=== PATIENT | female | born 1975 | race Caucasian/White ===

== ENCOUNTER 2017-02-07 10:48 | Inpatient (IN) | payer BC, OTHER ==
[~2017-02-07] VITALS: Ht 165.1 cm; Wt 94.1 kg
[2017-02-07] MEDS ORDERED: SODIUM CHLORIDE 0.9% 1000ML 1,000 ML IV SCH (10:54)
--- NOTE | 2017-02-07 11:27 | DIAGNOSTIC IMAGING REPORT ---
CT OF THE HEAD WITHOUT CONTRAST CLINICAL HISTORY: Stroke symptoms. Arm numbness. Leg weakness. COMPARISON STUDY: No previous studies for comparison. CT DOSE: 638.56 mGycm TECHNIQUE: Helical axial images of the head were obtained without IV contrast. Automated exposure control was utilized for the study. A dose lowering technique was utilized adhering to the principles of ALARA. FINDINGS: No acute intracranial hemorrhage, midline shift or mass effect is present. Ventricular system is normal. Basilar cisterns are patent. There are no extra-axial collections. Goddard-white differentiation is maintained. There are no findings to suggest acute dural sinus thrombosis or acute territorial infarct. There are no significant calvarial abnormalities. There is a probable mucous retention cyst within the right maxillary sinus. IMPRESSION: No acute intracranial findings. Electronically signed by: Forrest Coleman M.D. 02/07/2017 11:26 AM Dictated Date/Time: 02/07/2017 11:22 AM
[2017-02-07 11:51] LABS: BASO % 0.4 %; BASO ABS # 0.05 K/uL (0-0.2); COMPLETE YES; EOS % 2.6 %; HEMATOCRIT 42.2 % (37-47); IG% 0.2 %; LYMPH % 25.9 %; MEAN CELL VOLUME 83.4 fL (80-100); MEAN CORPUSCULAR HEMOGLOBIN 28.1 pg (25-34); MEAN CORPUSCULAR HGB CONC 33.6 g/dl (32-36); MEAN PLATELET VOLUME 9.4 fL (7.4-10.4); MONO % 7.4 %; NEUT % 63.5 %; PLATELET COUNT 347 K/uL (130-400); RED BLOOD COUNT 5.06 M/uL (4.2-5.4); WHITE BLOOD COUNT 11.58 K/uL (4.8-10.8)
[2017-02-07 12:02] LABS: PROTHROMBIN TIME (PATIENT) 10.4 SECONDS (9.0-12.0)
[2017-02-07 12:07] LABS: BLOOD UREA NITROGEN 6 mg/dl (7-18); BUN/CREATININE RATIO 6.9 (10-20); CALCIUM 9.2 mg/dl (8.5-10.1); CARBON DIOXIDE 24 mmol/L (21-32); CHLORIDE 105 mmol/L (98-107); GLUCOSE 83 mg/dl (70-99); POTASSIUM 3.9 mmol/L (3.5-5.1); SODIUM 136 mmol/L (136-145)
[2017-02-07 12:12] LABS: CKMB/CK RATIO 0.7 (0-3.0)
[2017-02-07] MEDS ORDERED: ASPIRIN 81 MG CHEW PO STA (12:20)
[2017-02-07] MEDS ORDERED: AMT50 PO (12:50)
[2017-02-07 13:00] VITALS: O2SAT 100; Ht 165.1 cm; Wt 94.1 kg
[2017-02-07 13:29] LABS: PREG INTERNAL NEGATIVE QC NEG CLEAR BACKGROUND; PREG INTERNAL POSITIVE QC POS CONTROL LINE
[2017-02-07] MEDS ORDERED: PHARMACIST DISCHARGE MED REC CONSULT PRN (13:30)
[2017-02-07 13:50] VITALS: O2SAT 100
[2017-02-07 14:00] VITALS: BP 151/103; PULSE 84; TEMP 36.9; O2SAT 100
--- NOTE | 2017-02-07 14:08 | History and Physical ---
History & Physical Date & Time of Service: Feb 07, 2017 at 13:31 Chief Complaint: Arm Numbness Primary Care Physician: Elmer Prescott History of Present Illness Source: patient, clinic records This is a 41 y/o female with PMH of depression, h/o migraine, chronic smoker, and other problems listed below who presents to the ED with stroke like symptoms. 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 [place] she could not sit up so coworkers laid her down on a mat. At that time noted left arm numbness and inability to lift the left arm. She reports initial LLE weakness then RLE weakness. 911 was called. States en route she knew her last name but was unable to speak it. Pt states left arm numbness/ weakness is improved but not back to baseline. States LLE weakness resolved but RLE still feels weak. states her asymmetric smile is chronic due to prior injury. Has a mild headache above R eye, states it feels different from prior migraines. Was anxious at time of event, but feels calmer now that symptoms are improved. [place] nausea when IV placed which resolved. Denies dizziness, syncope, vision change, photophobia, swallowing difficulty. No recent fever/ chills, URI symptoms, chest pain, palpitations, SOB, vomiting, bowel or bladder changes. A stroke alert was called in the ER. CT head was neg. tPA was discussed but declined by patient. Denies h/o HTN, HL, DM, TIA/ CVA. 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 Physical Exam Vital Signs Date Time Temp Pulse Resp B/P (MAP) Pulse Ox O2 Delivery O2 Flow Rate FiO2 02/07/17 12:40 89 18 150/91 100 Room Air 02/07/17 11:26 100 Room Air 02/07/17 11:10 80 02/07/17 11:01 36.6 85 18 144/103 100 Room Air General Appearance: no apparent distress, + obese, + pertinent finding (alert cooperative 41 year old female, lying in bed, at bedside) Head: normocephalic, atraumatic Eyes: normal inspection, PERRL, EOMI, sclerae normal ENT: hearing grossly normal, pharynx normal Neck: supple, no carotid bruits, trachea midline Respiratory/Chest: lungs clear, normal breath sounds, no respiratory distress, no accessory muscle use Cardiovascular: regular rate, rhythm, no murmur Abdomen/GI: normal bowel sounds, non tender, soft Extremities/Musculoskelatal: no calf tenderness, no pedal edema Neurologic/Psych: alert, normal mood/affect, oriented x 3, + pertinent finding (smile is asymmetric- chronic per , 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8 K/uL Red Blood Count 5.06 4.2-5.4 M/uL Hemoglobin 14.2 12.0-16.0 g/dL Hematocrit 42.2 37-47 % Mean Corpuscular Volume 83.4 80-100 fL Mean Corpuscular Hemoglobin 28.1 25-34 pg Mean Corpuscular Hemoglobin Concent 33.6 32-36 g/dl Platelet Count 347 130-400 K/uL Mean Platelet Volume 9.4 7.4-10.4 fL Neutrophils (%) (Auto) 63.5 % Lymphocytes (%) (Auto) 25.9 % Monocytes (%) (Auto) 7.4 % Eosinophils (%) (Auto) 2.6 % Basophils (%) (Auto) 0.4 % Neutrophils # (Auto) 7.35 1.4-6.5 K/uL Lymphocytes # (Auto) 3.00 1.2-3.4 K/uL Monocytes # (Auto) 0.86 0.11-0.59 K/uL Eosinophils # (Auto) 0.30 0-0.5 K/uL Basophils # (Auto) 0.05 0-0.2 K/uL RDW Standard Deviation 40.9 36.4-46.3 fL RDW Coefficient of Variation 13.7 11.5-14.5 % Immature Granulocyte % (Auto) 0.2 % Immature Granulocyte # (Auto) 0.02 0.00-0.02 K/uL Prothrombin Time 10.4 9.0-12.0 SECONDS Prothromb Time International Ratio 1.0 0.9-1.1 Activated Partial Thromboplast Time 26.2 21.0-31.0 SECONDS Partial Thromboplastin Ratio 1.0 Sodium Level 136 136-145 mmol/L Potassium Level 3.9 3.5-5.1 mmol/L Chloride Level 105 98-107 mmol/L Carbon Dioxide Level 24 21-32 mmol/L Anion Gap 7.0 3-11 mmol/L Blood Urea Nitrogen 6 7-18 mg/dl Creatinine 0.80 0.60-1.20 mg/dl Est Creatinine Clear Calc Drug Dose 107.9 ml/min Estimated GFR () 107.6 Estimated GFR (Non- 92.9 BUN/Creatinine Ratio 6.9 10-20 Random Glucose 83 70-99 mg/dl Calcium Level 9.2 8.5-10.1 mg/dl Total Creatine Kinase 84 26-192 U/L Creatine Kinase MB 0.6 0.5-3.6 ng/ml Creatine Kinase MB Ratio 0.7 0-3.0 Troponin I < 0.015 0-0.045 ng/ml Human Chorionic Gonadotropin, Qual NEG NEG Test 02/07/17 13:22 Range/Units Diagnostic Radiology CT OF THE HEAD WITHOUT CONTRAST IMPRESSION: No acute intracranial findings EKG NSR, 79 bpm, no ectopy Impression Assessment and Plan STROKE LIKE SYMPTOMS Rule out CVA- at risk 2/2 smoking, obesity; ddx also includes complex migraine, no significant metabolic abnormalities or evidence for infection CT head negative Stroke alert called in ER, [place] stroke neurologist evaluated patient via Telestroke, tPA discussed, refused by patient, per [place] neurologist this is atypical presentation for stroke but recommends hydrating the patient, aspirin 325 mg (given in ER), and stroke workup including MRI brain, MRA head and neck, echo F/u results of UA and drug screen Check lipid panel and A1c Add ASA 81 mg daily Allow permissive HTN (BP running 140s-150s) Consult neurology PT, OT, speech evaluations Neuro checks DEPRESSION Continue amitriptyline DVT PROPHYLAXIS Lovenox SQ DISPOSITION Telemetry observation Lives with Follows with Genie Herzog for primary care Patient seen in collaboration with Dr. Stevens. Please see his addendum. 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 Plan is to check an MRI/MRA of the head/neck; start aspirin 81mg, check Ha1c, lipid panel, PT/OT/speech, neuro evaluation. VTE Prophylaxis VTE Risk Assessment Done? Y/N: Yes Risk Level: Moderate
[2017-02-07] MEDS ORDERED: ONDANSETRON INJ 2 MG/ML 2 ML VIAL IV PRN (14:15)
[2017-02-07] MEDS ORDERED: ACETAMINOPHEN 325 MG TAB PO PRN (14:15)
[2017-02-07] MEDS: SODIUM CHLORIDE 0.9% 1000ML 1,000 ML IV SCH (15:30)
[2017-02-07 15:47] LABS: URINE APPEARANCE CLOUDY (CLEAR); URINE BILIRUBIN NEG (NEG); URINE COLOR YELLOW; URINE EPITHELIAL CELL AUTO >30 /lpf (0-5); URINE NITRITE NEG (NEG); URINE SPECIFIC GRAVITY 1.009 (1.000-1.030); UROBILINOGEN NEG (NEG)
[2017-02-07 15:51] VITALS: BP 132/86; PULSE 84; TEMP 36.7; O2SAT 98
[2017-02-07 15:58] LABS: MANUAL MICROSCOPIC REQUIRED? NO; REVIEW REQ? YES; ZZUR CULT IF INDIC CLEAN CATCH YES
[2017-02-07 16:34] LABS: BENZODIAZEPINE, URINE NEG (NEG); COCAINE,URINE NEG (NEG); PHENCYCLIDINE, URINE NEG (NEG)
--- NOTE | 2017-02-07 19:20 | DIAGNOSTIC IMAGING REPORT ---
BRAIN WITHOUT CONTRAST HISTORY: Mental status change Stroke TECHNIQUE: Multiplanar multisequence MRI of the brain was performed without the use of contrast. COMPARISON STUDY: None. FINDINGS: There are no areas of restricted diffusion to suggest acute infarction. The midline structures are intact. The paranasal sinuses are clear. The mastoid air cells are clear. The ventricles and sulci are within normal limits for age. There is no mass, hematoma, midline shift. The major vascular flow-voids at the skull base are well maintained. Minimal chronic small vessel change. IMPRESSION: No acute intracranial abnormality. Minimal chronic small vessel change of aging The above report was generated using voice recognition software. It may contain grammatical, syntax or spelling errors. Electronically signed by: Dinesh Hamlin M.D. 02/07/2017 7:19 PM Dictated Date/Time: 02/07/2017 7:17 PM
--- NOTE | 2017-02-07 19:22 | DIAGNOSTIC IMAGING REPORT ---
MRA HEAD WITHOUT CONTRAST HISTORY: Mental status change Stroke - Attention to [place] TECHNIQUE: 3-D [id number] MRA of the brain was performed without contrast. COMPARISON STUDY: None. FINDINGS: Visualized intracranial internal carotid arteries, distal vertebral arteries, and basilar artery are widely patent. There is no significant stenosis, occlusion, or aneurysm seen within the bilateral ACAs, MCAs, or director statistical programming. IMPRESSION: No significant stenosis, occlusion, or aneurysm within the [place]. The above report was generated using voice recognition software. It may contain grammatical, syntax or spelling errors. Electronically signed by: Dinesh Hamlin M.D. 02/07/2017 7:21 PM Dictated Date/Time: 02/07/2017 7:20 PM
--- NOTE | 2017-02-07 19:27 | DIAGNOSTIC IMAGING REPORT ---
MRA NECK COMBO HISTORY: Mental status change L sided weakness TECHNIQUE: [id number] and gadolinium-enhanced MRA of the neck was performed both before and after the intravenous administration of contrast. All measurements were calculated based on NASCET criteria. COMPARISON STUDY: None. FINDINGS: The aortic arch and proximal great vessels are widely patent. There is no significant stenosis, occlusion, or dissection identified within the bilateral common carotid, internal carotid, or vertebral arteries. IMPRESSION: No significant stenosis, occlusion, or dissection identified within the carotid or vertebral arteries. The above report was generated using voice recognition software. It may contain grammatical, syntax or spelling errors. Electronically signed by: Dinesh Hamlin M.D. 02/07/2017 7:26 PM Dictated Date/Time: 02/07/2017 7:26 PM
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
[2017-02-07 19:45] VITALS: BP 119/84; PULSE 78; TEMP 36.7; O2SAT 99
[2017-02-07] MEDS ORDERED: CEFTRIAXONE SOD INJ 1 GM in DEXTROSE 5% ADD-VANTAGE 50ML 50 ML IV SCH (20:00)
[2017-02-07] MEDS ORDERED: AMITRIPTYLINE HCL 25 MG TAB PO SCH (21:00)
[2017-02-07] MEDS ORDERED: ENOXAPARIN 40 MG/0.4 ML SYR SC SCH (21:00)
--- NOTE | 2017-02-07 21:20 | EMERGENCY ROOM VISIT NOTE ---
History First contact with patient: 10:54 Chief Complaint: WEAKNESS Stated Complaint: ARM NUMBNESS History of Present Illness The patient is a 41 year old female who presents to the Emergency Room with complaints of left arm numbness and weakness that started 1.5 hrs ago and is improving. She notes feeling anxious when the symptoms started but was not stressed before. The pt also notes feeling weak in the right leg. No prior history. She took no meds for the symptoms. EMS glucose check was 74. Pt denies LOC, headache, fevers, chills, diaphoresis, visual changes, neck pain, chest pain, breathing difficulties, nausea, vomiting, abdominal pain, back pain , melena, hematochezia, urinary symptoms, lymphadenopathy, rash, or other complaints. Review of Systems See HPI for pertinent positives and negatives. A total of ten systems were reviewed and were otherwise negative. Past Medical/Surgical History Medical Problems: (1) Depression (2) Migraine (3) PIH ( induced hypertension) (4) Stroke-like symptoms Surgical Problems: (1) No significant past surgical history Current/Historical Medications Scheduled Amitriptyline Hcl (Elavil), 75 MG PO HS Allergies Coded Allergies: No Known Allergies (Unverified , 02/07/17) Physical Exam Vital Signs Date Time Temp Pulse Resp B/P (MAP) Pulse Ox O2 Delivery O2 Flow Rate FiO2 02/07/17 11:23 153 21 146/113 02/07/17 11:13 100 25 02/07/17 11:10 80 02/07/17 11:01 36.6 85 18 144/103 100 Room Air Physical Exam GENERAL: Awake, alert,anxious appearing, no distress HENT: Normocephalic, atraumatic. TM's normal. Oropharynx unremarkable. EYES: PERRL. EOMI. Normal conjunctiva. Sclera non-icteric. NECK: Supple. No nuchal rigidity. FROM. No JVD or bruit. RESPIRATORY: CTA CARDIAC: RRR. No murmur. ABDOMEN: Soft, non distended. No tenderness to palpation. No rebound or guarding. No masses. RECTAL: Deferred. MUSCULOSKELETAL: Unremarkable. No edema. No discoloration. Gross motor strength symmetric. NEURO: Cranial nerves 2-12 grossly intact. Normal sensorium. No sensory or motor deficits noted except subject numbness in the left arm and 3.5 strength in the RLE and 4 in the LLE. Speech normal. No pronator drift. Symmetric LE reflexes. SKIN: No rash or jaundice noted. LYMPH: No adenopathy. Medical Decision & Procedures Laboratory Results 02/07/17 11:15 Red Blood Count 5.06, Mean Corpuscular Volume 83.4, Mean Corpuscular Hemoglobin 28.1, Mean Corpuscular Hemoglobin Concent 33.6, Mean Platelet Volume 9.4, Neutrophils (%) (Auto) 63.5, Lymphocytes (%) (Auto) 25.9, Monocytes (%) (Auto) 7.4, Eosinophils (%) (Auto) 2.6, Basophils (%) (Auto) 0.4, Neutrophils # (Auto) 7.35, Lymphocytes # (Auto) 3.00, Monocytes # (Auto) 0.86, Eosinophils # (Auto) 0.30, Basophils # (Auto) 0.05 02/07/17 11:15 Test 02/07/17 11:10 02/07/17 11:13 02/07/17 11:15 Bedside Prothrombin Time INR 1.0 (0.9-1.1) Bedside Glucose 85 mg/dl (70-90) White Blood Count 11.58 K/uL (4.8-10.8) Red Blood Count 5.06 M/uL (4.2-5.4) Hemoglobin 14.2 g/dL (12.0-16.0) Hematocrit 42.2 % (37-47) Mean Corpuscular Volume 83.4 fL (80-100) Mean Corpuscular Hemoglobin 28.1 pg (25-34) Mean Corpuscular Hemoglobin Concent 33.6 g/dl (32-36) Platelet Count 347 K/uL (130-400) Mean Platelet Volume 9.4 fL (7.4-10.4) Neutrophils (%) (Auto) 63.5 % Lymphocytes (%) (Auto) 25.9 % Monocytes (%) (Auto) 7.4 % Eosinophils (%) (Auto) 2.6 % Basophils (%) (Auto) 0.4 % Neutrophils # (Auto) 7.35 K/uL (1.4-6.5) Lymphocytes # (Auto) 3.00 K/uL (1.2-3.4) Monocytes # (Auto) 0.86 K/uL (0.11-0.59) Eosinophils # (Auto) 0.30 K/uL (0-0.5) Basophils # (Auto) 0.05 K/uL (0-0.2) RDW Standard Deviation 40.9 fL (36.4-46.3) RDW Coefficient of Variation 13.7 % (11.5-14.5) Immature Granulocyte % (Auto) 0.2 % Immature Granulocyte # (Auto) 0.02 K/uL (0.00-0.02) Prothrombin Time 10.4 SECONDS (9.0-12.0) Prothromb Time International Ratio 1.0 (0.9-1.1) Activated Partial Thromboplast Time 26.2 SECONDS (21.0-31.0) Partial Thromboplastin Ratio 1.0 Anion Gap 7.0 mmol/L (3-11) Est Creatinine Clear Calc Drug Dose 107.9 ml/min Estimated GFR () 107.6 Estimated GFR (Non- 92.9 BUN/Creatinine Ratio 6.9 (10-20) Calcium Level 9.2 mg/dl (8.5-10.1) Total Creatine Kinase 84 U/L (26-192) Creatine Kinase MB 0.6 ng/ml (0.5-3.6) Creatine Kinase MB Ratio 0.7 (0-3.0) Troponin I < 0.015 ng/ml (0-0.045) Medications Administered Medications (Trade) Dose Ordered Sig/Jyoti Route Start Time Stop Time Status Last Admin Dose Admin Sodium Chloride 1,000 ml @ 50 mls/hr Q20H IV 02/07/17 10:54 02/07/17 14:59 DC 02/07/17 10:54 50 MLS/HR Medical Decision Triage Nursing notes reviewed. The patient's presentation and history were concerning for stroke like symptoms. Etiologies such as CVA, TIA, atypical migraine, metabolic, infection, hypo/ hyperglycemia, electrolyte abnormalities, cardiac sources, intracerebral event, toxicologic, neurologic, as well as others were entertained. Patient was evaluated. She had improving symptoms in the left arm and had weakness that was in the bilateral lower extremities with symmetric reflexes. Because of the acute onset of symptoms and no prior history I did initiate a stroke alert. I discussed the case with Dr. Liu of [employer]-stroke. The patient had an unremarkable head CT. Blood work showed a slight leukocytosis but otherwise is unremarkable. She was hydrated. He felt that the patient had a very low stroke scale and had an atypical presentation. He did discuss TPA with the patient and she refused. He recommended admission for further workup. The patient was given aspirin. I did consult with internal medicine. The patient was educated. She was in agreement. The patient was evaluated by internal medicine in the emergency from for further management. Impression Primary Impression: Stroke-like symptoms Departure Information Dispostion Being Evaluated By Hospitalist Patient Instructions My [facility]
[2017-02-07 23:14] VITALS: BP 113/75; PULSE 76; TEMP 36.6; O2SAT 98
[2017-02-08 03:56] VITALS: BP 119/79; PULSE 68; TEMP 36.7; O2SAT 96
[2017-02-08] MEDS: SODIUM CHLORIDE 0.9% 1000ML 1,000 ML IV SCH (04:17)
[2017-02-08 06:20] LABS: BASO % 0.3 %; BASO ABS # 0.03 K/uL (0-0.2); COMPLETE YES; EOS % 2.2 %; IG% 0.3 %; LYMPH % 26.5 %; LYMPH ABS # 2.63 K/uL (1.2-3.4); MEAN CELL VOLUME 83.7 fL (80-100); MEAN CORPUSCULAR HEMOGLOBIN 27.7 pg (25-34); MEAN CORPUSCULAR HGB CONC 33.1 g/dl (32-36); MEAN PLATELET VOLUME 9.3 fL (7.4-10.4); MONO % 7.6 %; NEUT % 63.1 %; PLATELET COUNT 301 K/uL (130-400); RED BLOOD COUNT 4.66 M/uL (4.2-5.4); WHITE BLOOD COUNT 9.93 K/uL (4.8-10.8)
[2017-02-08 06:55] LABS: BUN/CREATININE RATIO 10.8 (10-20); CALCIUM 8.2 mg/dl (8.5-10.1); CREATININE 0.64 mg/dl (0.60-1.20); POTASSIUM 3.5 mmol/L (3.5-5.1)
[2017-02-08 06:58] LABS: CHOLESTEROL/HDL RATIO 6.2
[2017-02-08 07:41] VITALS: BP 119/84; PULSE 77; TEMP 36.8; O2SAT 97
[2017-02-08 08:34] LABS: ESTIMATED AVERAGE GLUCOSE 111 mg/dl; HA1C FLAG Normal (Normal)
[2017-02-08] MEDS ORDERED: ASPIRIN 81 MG ECTAB PO SCH (09:00)
--- NOTE | 2017-02-08 10:37 | Discharge Instructions ---
Discharge Instructions Date of Service Feb 08, 2017. Admission Reason for Admission: Stroke-Like Symptoms Discharge Discharge Diagnosis / Problem: MIGRAIN /STROKE LIKE SYMPTOM -NO EVIDENCE OF TIA Discharge Goals Goal(s): Decrease discomfort, Improve disease control, Diagnostic testing, Therapeutic intervention Activity Recommendations Activity Limitations: resume your previous activity . Instructions / Follow-Up Instructions / Follow-Up Risk Factors for Stroke: You can reduce your chances of stroke by working with your medical provider to adopt a healthy lifestyle. Some specific ways to lower your chance of stroke are: * If you are a smoker, now is the time to stop smoking cigarettes * If you are diabetic, improve the control of your blood sugars * Avoid excessive amounts of alcohol * Control high blood pressure * Lose weight if you are overweight * Be sure to lead an active lifestyle * Eat a healthy diet low in salt, cholesterol and fat You should know about other risk factors for stroke that you are unable to control. These include: * Age 55 years or older * Male gender * Certain racial groups: , or / * Family History of Stroke, Mini stroke or Heart Attack * Sickle Cell Disease Follow Up: HOSPITAL FOLLOW UP : 02/12/2017 9:30 AM Elmer Prescott Jr. PAZaydaC [facility] FOLLOW UP WITH NEUROLOGY DR ONOFRE IN OFFICE IN 1-2 WEEKS TO DISCUSS REGARDING MAGRAIN TREATMENT YOU ARE ASKED TO TAKE ASPIRIN LOW DOSE 81 MG DAILY ( TAKE WITH FULL STOMACH ) WHICH IS PROVEN TO BENEFIT IN MIGRAINE HEADACHE Current Hospital Diet Patient's current hospital diet: AHA Diet (Heart Healthy) Discharge Diet Recommended Diet: AHA Diet (Heart Healthy) Pending Studies Studies pending at discharge: no Laboratory Results Hemoglobin A1c Test 02/07/17 11:15 Range/Units Estimated Average Glucose 111 mg/dl Hemoglobin A1c 5.5 4.5-5.6 % Lipid Panel Test 02/08/17 05:12 Range/Units Triglycerides Level 172 H 0-150 mg/dl Cholesterol Level 197 0-200 mg/dl HDL Cholesterol 32 mg/dl Cholesterol/HDL Ratio 6.2 LDL Cholesterol, Calculated 131 mg/dl Medical Emergencies . Who to Call and When: Medical Emergencies: Call 911 immediately if you experience any of the following warning signs and symptoms of Stroke: * Sudden numbness or weakness of the face, arm or leg, especially on one side of the body * Sudden confusion, trouble speaking or understanding * Sudden trouble seeing in one or both eyes * Sudden trouble walking, dizziness, loss of balance or coordination * Sudden severe headache with no cause Do not delay calling 911 if you experience any warning signs or symptoms of a stroke. Delay in seeking medical attention may affect what treatments can be given to you. . Non-Emergent Contact Non-Emergency issues call your: Primary Care Provider . . "Provider Documentation" section prepared by Barbara Dunlap. . Stroke Core Measures Reason no t-PA for Stroke: Treatment not indicated Reason no antithrom by day 2: Treatment not indicated Reason no antithrom at D/C: Treatment not indicated Reason no statin at D/C: Treatment not indicated Reason no anticoag w/a fib: Treatment not indicated VTE Core Measure Inpt VTE Proph given/why not?: Pacheco Odonnell, SCD's
[2017-02-08 11:35] VITALS: BP 126/85; PULSE 76; TEMP 36.8; O2SAT 99
--- NOTE | 2017-02-08 11:53 | PROGRESS NOTE ---
DATE: 02/08/2017 DATE: 02/08/2017 SUBJECTIVE: I am seeing Mrs. Underwood in followup of a mild headache with a left hemiparesis. Her hemiparesis is improving. She has had intermittently a mild headache. She has not had any new neurologic symptoms. Her MRI of the brain without contrast was normal other than minor chronic ischemic changes consistent with age. MRA of the head and neck were normal. I do not believe an echo yet was performed. Telemetric monitoring revealed sinus rhythm, her thrombosis panel is pending. PHYSICAL EXAMINATION: GENERAL: She is awake and alert. Normal speech and language. No right/left confusion. No facial asymmetry, normal visual mahan. 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 Deltoid full. There is no drift, but there are diminished left rapid alternating movements. Bilateral lower extremities are full. Finger to nose is slower on the left than the right, but nondystaxia. Her gait is unremarkable and there is symmetric arm swing. IMPRESSION: Complicated migraine versus conversion. PLAN: At present, I would recommend obtaining the results of the echocardiography. Provided normal discharge the patient. I do not think at this point, she requires any prophylactic agents for migraine, although that might be a consideration if she had further events. 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 She should see us in followup in the office within 2 weeks and with primary sooner so that they may release her to work if she is ready to return. ISABEL
--- NOTE | 2017-02-08 12:12 | ECHOCARDIOGRAM REPORT ---
*NOTICE TO RECEIVING CONSTITUTION PARTY AGENCY This information is strictly Confidential and protected under [place] law. [place] law prohibits you from making any further disclosure of this information unless further disclosure is expressly permitted by the written consent of the person to whom it pertains or is authorized by law. A general authorization for the release of medical or other information is not sufficient for this purpose. Hospital accepts no responsibility if the information is made available to any other person, INCLUDING THE PATIENT. Interpretation Summary * Name: PHYLLIS SANCHEZ Study Date: 02/08/2017 09:44 AM BP: 119/79 mmHg * Patient Location: [facility] HR: 84 * : 1975 (M/d/yyyy) Gender: Female Height: 65 in * Age: 41 yrs Ethnicity: [place] Weight: 210 lb * Ordering Physician: Shayy Ohara * Referring Physician: Self, Referred * Performed By: Pieter Ragland RCS * * Reason For Study: TIA * BSA: 2.0 m2 * -- Conclusions -- * 1. Normal LV size. Borderline concentric LVH. * 2. Normal LV systolic function. LVEF 60-65%. No regional wall motion abnormalities. * 3. Normal RV size and function. * 4. No significant valvular pathology. * 5. Negative saline contrast study for interatrial shunt. * 6. No prior studies for comparison. Procedure Details * A saline contrast injection was performed to assess for cardiac shunting. * The injection was performed through an intravenous line in the left arm. * The attending nurse who injected the saline contrast was DEEPTI, SADAF. * A total of 9 cc of agitated saline was given. Left Ventricle * The left ventricle is grossly normal size. * There is borderline concentric left ventricular hypertrophy. * Ejection Fraction = 60-65%. Right Ventricle * The right ventricle is grossly normal size. * The right ventricular systolic function is normal as assessed by tricuspid annular plane systolic excursion (TAPSE) (normal >1.5 cm). Atria * The left atrial size is normal. * Right atrial size is normal. Mitral Valve * The mitral valve is grossly normal. * There is no mitral valve stenosis. * There is trace mitral regurgitation. Tricuspid Valve * The tricuspid valve is not well visualized, but is grossly normal. * There is no tricuspid stenosis. * Significant tricuspid regurgitation is absent. Aortic Valve * The aortic valve opens well. * The aortic valve is trileaflet. * No hemodynamically significant valvular aortic stenosis. * There is no significant aortic regurgitation. Pulmonic Valve * The pulmonary valve is inadequately visualized, but the Doppler data is adequate for interpretation. * There is no pulmonic valvular stenosis. * Trace pulmonic valvular regurgitation. Great Vessels * The aortic root and proximal ascending aorta are normal sized. Pericardium/Pleural * There is no pericardial effusion. Great Vessels * Normal inferior vena cava size and collapsability with sniff indicates a normal right atrial pressure of 3 mmHg MMode 2D Measurements and Calculations IVSd 1.1 cm LVIDd 3.9 cm LVIDs 1.8 cm LVPWd 1.1 cm IVS/LVPW 10 FS 54.4 % EDV(Teich) 65.1 ml ESV(Teich) 9.3 ml EF(Teich) 85.7 % EDV(cubed) 58.4 ml ESV(cubed) 5.5 ml EF(cubed) 90.5 % LV mass(C)d 135.7 grams LV mass(C)dI 67.2 grams/m\S\2 SV(Teich) 55.8 ml SI(Teich) 27.6 ml/m\S\2 SV(cubed) 52.9 ml SI(cubed) 26.2 ml/m\S\2 Ao root diam 2.7 cm Ao root area 5.6 cm\S\2 LVOT diam 1.9 cm LVOT area 2.9 cm\S\2 EDV(MOD-sp4) 85.5 ml ESV(MOD-sp4) 37.3 ml EF(MOD-sp4) 56.4 % EDV(MOD-sp2) 54.6 ml ESV(MOD-sp2) 19.5 ml EF(MOD-sp2) 64.3 % SV(MOD-sp4) 48.3 ml SI(MOD-sp4) 23.9 ml/m\S\2 SV(MOD-sp2) 35.1 ml SI(MOD-sp2) 17.4 ml/m\S\2 Doppler Measurements and Calculations MV E max jericho 84.0 cm/sec MV A max jericho 68.0 cm/sec MV E/A 1.2 MV dec time 0.22 sec Ao V2 max 100.1 cm/sec Ao max PG 4.0 mmHg Ao max PG (full) 1.3 mmHg HALIE(V,A) 2.4 cm\S\2 HALIE(V,D) 2.4 cm\S\2 LV V1 max PG 2.7 mmHg LV V1 max 82.7 cm/sec TR max jericho 139.8 cm/sec
[2017-02-08] MEDS ORDERED: KETOROLAC TROMETHAMINE 30 MG/ML VIAL IV STA (13:28)
[2017-02-08] MEDS ORDERED: ASPEC81 PO (13:32)
--- NOTE | 2017-02-08 13:39 | Progress Note ---
Internal Med Progress Note Date of Service: Feb 08, 2017. Provider Documentation: SUBJECTIVE: No complain of facial numbness no weakness or paresthesia has throbbing headache , OBJECTIVE: Vital Signs-as noted below Exam: General-no sign of distress Eyes-sclera non icteric ENT-NAD Neck-no JVD Lungs-CTA Heart-regular S1/s2 Abdomen-soft, non tender Extremities-no lower ext edema Neuro-AAO x3 Lab data as noted below. ASSESSMENT & PLAN: STROKE LIKE SYMPTOMS/NO CVA /POSSIBLE MIGRAINE HEADACHE CT head negative MRI/MRA of brain -no acute change no evidence of CVA pt's symptoms of weakness and paresthesia has resolved completely appreciate Consult from neurology-possible migraine headache pt can be started on Aspirin 81 which will provide additional benefit for migraine pain out pt follow up with Neurology in 2 weeks DEPRESSION Continue amitriptyline DVT PROPHYLAXIS Lovenox SQ DISPOSITION discharge home today hospital Follow up with Genie Herzog for primary care Vital Signs: Date Time Temp Pulse Resp B/P (MAP) Pulse Ox O2 Delivery O2 Flow Rate FiO2 02/08/17 14:07 36.8 76 18 99 Room Air 02/08/17 12:00 Room Air 02/08/17 11:35 36.8 76 18 126/85 (99) 99 Room Air 02/08/17 08:00 Room Air 02/08/17 07:41 36.8 77 18 119/84 (96) 97 Room Air 02/08/17 04:00 Room Air 02/08/17 03:56 36.7 68 15 119/79 (92) 96 Room Air 02/08/17 00:01 Room Air 02/07/17 23:14 36.6 76 17 113/75 (88) 98 Room Air 02/07/17 20:15 Room Air 02/07/17 19:45 36.7 78 16 119/84 (96) 99 Room Air Lab Results: Results Past 24 Hours Test 02/08/17 05:12 Range/Units White Blood Count 9.93 4.8-10.8 K/uL Red Blood Count 4.66 4.2-5.4 M/uL Hemoglobin 12.9 12.0-16.0 g/dL Hematocrit 39.0 37-47 % Mean Corpuscular Volume 83.7 80-100 fL Mean Corpuscular Hemoglobin 27.7 25-34 pg Mean Corpuscular Hemoglobin Concent 33.1 32-36 g/dl Platelet Count 301 130-400 K/uL Mean Platelet Volume 9.3 7.4-10.4 fL Neutrophils (%) (Auto) 63.1 % Lymphocytes (%) (Auto) 26.5 % Monocytes (%) (Auto) 7.6 % Eosinophils (%) (Auto) 2.2 % Basophils (%) (Auto) 0.3 % Neutrophils # (Auto) 6.27 1.4-6.5 K/uL Lymphocytes # (Auto) 2.63 1.2-3.4 K/uL Monocytes # (Auto) 0.75 0.11-0.59 K/uL Eosinophils # (Auto) 0.22 0-0.5 K/uL Basophils # (Auto) 0.03 0-0.2 K/uL RDW Standard Deviation 42.4 36.4-46.3 fL RDW Coefficient of Variation 13.9 11.5-14.5 % Immature Granulocyte % (Auto) 0.3 % Immature Granulocyte # (Auto) 0.03 0.00-0.02 K/uL Sodium Level 138 136-145 mmol/L Potassium Level 3.5 3.5-5.1 mmol/L Chloride Level 110 98-107 mmol/L Carbon Dioxide Level 22 21-32 mmol/L Anion Gap 6.0 3-11 mmol/L Blood Urea Nitrogen 7 7-18 mg/dl Creatinine 0.64 0.60-1.20 mg/dl Est Creatinine Clear Calc Drug Dose 134.9 ml/min Estimated GFR () 130.3 Estimated GFR (Non- 112.4 BUN/Creatinine Ratio 10.8 10-20 Random Glucose 86 70-99 mg/dl Calcium Level 8.2 8.5-10.1 mg/dl Triglycerides Level 172 0-150 mg/dl Cholesterol Level 197 0-200 mg/dl HDL Cholesterol 32 mg/dl LDL Cholesterol, Calculated 131 mg/dl VLDL Cholesterol, Calculated 34 mg/dl Cholesterol/HDL Ratio 6.2
--- NOTE | 2017-02-08 13:39 | Discharge Summary ---
Discharge Summary Date of Service Feb 08, 2017. Discharge Summary Admission Date: Feb 07, 2017 at 11:25 Discharge Date: Feb 08, 2017 Discharge Disposition: Home Principal Diagnosis: MAGRAIN /STROKE LIKE SYMPTOM -NO EVIDENCE OF TIA Procedures: CT HEAD : IMPRESSION: No acute intracranial findings. MRI BRAIN : IMPRESSION: No acute intracranial abnormality. Minimal chronic small vessel change of aging MRA OF BRAIN : IMPRESSION: No significant stenosis, occlusion, or aneurysm within the [place] of [place]. MRA OF NECK : IMPRESSION: No significant stenosis, occlusion, or dissection identified within the carotid or vertebral arteries. ECHO : * -- Conclusions -- * 1. Normal LV size. Borderline concentric LVH. * 2. Normal LV systolic function. LVEF 60-65%. No regional wall motion abnormalities. * 3. Normal RV size and function. * 4. No significant valvular pathology. * 5. Negative saline contrast study for interatrial shunt. * 6. No prior studies for comparison. Consultations: NEUROLOGY -[facility] Medication Reconciliation New Medications: Aspirin (Aspirin EC Low Dose) 81 Mg Ectab 1 TAB PO DAILY for 30 Days, #30 TAB Continued Medications: Amitriptyline Hcl (Elavil) 50 Mg Tab 75 MG PO HS, TAB Admission Information HPI (per Admitting provider): This is a 41 y/o female with PMH of depression, h/o migraine, chronic smoker, and other problems listed below who presents to the ED with stroke like symptoms. 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 [place] she could not sit up so coworkers laid her down on a mat. At that time noted left arm numbness and inability to lift the left arm. She reports initial LLE weakness then RLE weakness. 911 was called. States en route she knew her last name but was unable to speak it. Pt states left arm numbness/ weakness is improved but not back to baseline. States LLE weakness resolved but RLE still feels weak. states her asymmetric smile is chronic due to prior injury. Has a mild headache above R eye, states it feels different from prior migraines. Was anxious at time of event, but feels calmer now that symptoms are improved. [place] nausea when IV placed which resolved. Denies dizziness, syncope, vision change, photophobia, swallowing difficulty. No recent fever/ chills, URI symptoms, chest pain, palpitations, SOB, vomiting, bowel or bladder changes. A stroke alert was called in the ER. CT head was neg. tPA was discussed but declined by patient. Denies h/o HTN, HL, DM, TIA/ CVA. Physical Exam (per Admitting): General Appearance: no apparent distress, + obese, + pertinent finding ( alert cooperative 41 year old female, lying in bed, at bedside) Head: normocephalic, atraumatic Eyes: normal inspection, PERRL, EOMI, sclerae normal ENT: hearing grossly normal, pharynx normal Neck: supple, no carotid bruits, trachea midline Respiratory/Chest: lungs clear, normal breath sounds, no respiratory distress, no accessory muscle use Cardiovascular: regular rate, rhythm, no murmur Abdomen/GI: normal bowel sounds, non tender, soft Extremities/Musculoskelatal: no calf tenderness, no pedal edema Neurologic/Psych: alert, normal mood/affect, oriented x 3, + pertinent finding (smile is asymmetric- chronic per , 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-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 including normal speech, motor exam- RUE strength 5/5, shaky and slow to lift the LUE, L upper arm 4/5, L hand port patrol officer strength 4/5, bilateral LE- minimally able to lift against gravity with 3/5 dorsiflexion and plantar flexion, sensation to light touch intact on extremities except for subjective decrease on distal 1st and 2nd digits) Skin: normal color, warm/dry Hospital Course STROKE LIKE SYMPTOMS/NO CVA /POSSIBLE MIGRAINE HEADACHE CT head negative MRI/MRA of brain -no acute change no evidence of CVA pt's symptoms of weakness and paresthesia has resolved completely appreciate Consult from neurology-possible migraine headache pt can be started on Aspirin 81 which will provide additional benefit for migraine pain out pt follow up with Neurology in 2 weeks DEPRESSION Continue amitriptyline DVT PROPHYLAXIS Lovenox SQ DISPOSITION discharge home today hospital Follow up with Genie Herzog for primary care Total time spent on discharge = 35 mins This includes examination of the patient, discharge planning, medication reconciliation, and communication with other providers. Discharge Instructions Discharge Instructions Date of Service Feb 08, 2017. Admission Reason for Admission: Stroke-Like Symptoms Discharge Discharge Diagnosis / Problem: MAGRAIN /STROKE LIKE SYMPTOM -NO EVIDENCE OF TIA Discharge Goals Goal(s): Decrease discomfort, Improve disease control, Diagnostic testing, Therapeutic intervention Activity Recommendations Activity Limitations: resume your previous activity . Instructions / Follow-Up Instructions / Follow-Up Risk Factors for Stroke: You can reduce your chances of stroke by working with your medical provider to adopt a healthy lifestyle. Some specific ways to lower your chance of stroke are: * If you are a smoker, now is the time to stop smoking cigarettes * If you are diabetic, improve the control of your blood sugars * Avoid excessive amounts of alcohol * Control high blood pressure * Lose weight if you are overweight * Be sure to lead an active lifestyle * Eat a healthy diet low in salt, cholesterol and fat You should know about other risk factors for stroke that you are unable to control. These include: * Age 55 years or older * Male gender * Certain racial groups: , or / * Family History of Stroke, Mini stroke or Heart Attack * Sickle Cell Disease Follow Up: HOSPITAL FOLLOW UP : 02/12/2017 9:30 AM Elmer Prescott Jr., PAZaydaC [facility] FOLLOW UP WITH NEUROLOGY DR ONOFRE IN OFFICE IN 1-2 WEEKS TO DISCUSS REGARDING MAGRAIN TREATMENT YOU ARE ASKED TO TAKE ASPIRIN LOW DOSE 81 MG DAILY ( TAKE WITH FULL STOMACH ) WHICH IS PROVEN TO BENEFIT IN MIGRAINE HEADACHE Current Hospital Diet Patient's current hospital diet: AHA Diet (Heart Healthy) Discharge Diet Recommended Diet: AHA Diet (Heart Healthy) Pending Studies Studies pending at discharge: no Laboratory Results Hemoglobin A1c Test 02/07/17 11:15 Range/Units Estimated Average Glucose 111 mg/dl Hemoglobin A1c 5.5 4.5-5.6 % Lipid Panel Test 02/08/17 05:12 Range/Units Triglycerides Level 172 H 0-150 mg/dl Cholesterol Level 197 0-200 mg/dl HDL Cholesterol 32 mg/dl Cholesterol/HDL Ratio 6.2 LDL Cholesterol, Calculated 131 mg/dl Medical Emergencies . Who to Call and When: Medical Emergencies: Call 911 immediately if you experience any of the following warning signs and symptoms of Stroke: * Sudden numbness or weakness of the face, arm or leg, especially on one side of the body * Sudden confusion, trouble speaking or understanding * Sudden trouble seeing in one or both eyes * Sudden trouble walking, dizziness, loss of balance or coordination * Sudden severe headache with no cause Do not delay calling 911 if you experience any warning signs or symptoms of a stroke. Delay in seeking medical attention may affect what treatments can be given to you. . Non-Emergent Contact Non-Emergency issues call your: Primary Care Provider . . "Provider Documentation" section prepared by Barbara Dunlap. . Stroke Core Measures Reason no t-PA for Stroke: Treatment not indicated Reason no antithrom by day 2: Treatment not indicated Reason no antithrom at D/C: Treatment not indicated Reason no statin at D/C: Treatment not indicated Reason no anticoag w/a fib: Treatment not indicated VTE Core Measure Inpt VTE Proph given/why not?: Pacheco Odonnell, SCD's
[2017-02-08 14:07] VITALS: BP 126/85; PULSE 76; TEMP 36.8; O2SAT 99
[2017-02-12 15:36] LABS: ANTITHROMBINIII ACTIVITY** 96 % activity (80-120); B2 GLYCOPROTEIN IGA <9 SAU (<=20); B2 GLYCOPROTEIN IGG <9 SGU (<=20); B2 GLYCOPROTEIN IGM <9 SMU (<=20); LUPUS ANTICOAGULANT** TC36573X Negative (Negative); PROTEIN C ACTIVITY** TC 1777X 120 % (70-180); PROTEIN S ACT(FUNCT)**1779X 86 % (60-140)
== END 2017-02-08 14:37 | disposition home or self-care (01) | DRG 103 ==
LOC: EDBD 10:48 → C.EDC 10:50 → C.2T 11:25 → ENRESERV 13:25
PROVIDERS: ADMIT Family Medicine; ATTEND Hospitalist
DX: G43.909 Migraine, unspecified, not intractable, without status migrainosus (principal); E66.9 Obesity, unspecified; Z68.34 Body mass index [BMI] 34.0-34.9, adult; R20.2 Paresthesia of skin; M62.81 Muscle weakness (generalized); F32.9 Major depressive disorder, single episode, unspecified; F17.210 Nicotine dependence, cigarettes, uncomplicated; Z79.899 Other long term (current) drug therapy